=== PATIENT | female | born 1995 | race Caucasian/White ===

== ENCOUNTER 2020-06-19 12:39 | Outpatient (REF) | payer OTHER, SELFPAY ==
[2020-06-19 13:25] LABS: COVID-19 Test Negative (Negative)
== END 2020-06-19 12:40 | disposition home or self-care (01) ==
LOC: HO.LAB 12:39
PROVIDERS: PCP Internal Medicine; Visit Provider Internal Medicine
DX: F25.0 Schizoaffective disorder, bipolar type (principal); Z20.822 Contact with and (suspected) exposure to COVID-19
CPT/HCPCS: 36415; 87635

== ENCOUNTER 2020-09-27 12:21 | Emergency (ER) | payer OTHER, SELFPAY ==
--- NOTE | ~2020-09-27 | US_ITS ---
EXAMINATION: ULTRASOUND PELVIS, TRANSVAGINAL AND DOPPLER. CLINICAL INFORMATION: Left-sided pain. Rule out torsion or ruptured cyst. COMPARISON: None TECHNIQUE: Transabdominal and transvaginal imaging pelvis is performed. Patient has a empty bladder hence transvaginal ultrasound. FINDINGS: On transabdominal and transvaginal ultrasound the uterus is anteverted and anteflexed measuring 9.6 x 4.7 x 5.8 cm. There is fluid visualized within the cervical canal. Endometrial thickness is prominent measuring 0.9 cm. No gestational sac seen. However there is a hypoechoic mass in the left fundal/body of uterus, approximately measuring 2.3 x 2.3 x 2.0 cm just adjacent and inferior in the body of uterus are tangled blood vessels and increased color flow likely related to increased hypervascularity of this fibroid or post biopsy changes. Patient did have a biopsy of this fibroid 4 years ago. Posttraumatic or postbiopsy findings could appear similar. The right ovary measures 4.3 x 3.1 x 2.7 cm and volume 18.8 mL. There is an anechoic corpus luteal cyst measuring 2.7 x 2.5 x 2.5 cm. Ovary measures 3.2 x 2.4 x 1.5 cm and volume 6.0 mL. There is small amount of free fluid in the pelvis. US/US pelvic ovarian doppler IMPRESSION: Small to moderate-sized hypoechoic fibroid left uterus with increased hypervascularity. This could be related to post biopsy or post traumatic changes. Correlate clinically. Small corpus luteal cyst right ovary measuring 2.7 cm. The left ovary is unremarkable. There is minimal fluid in the cervix. There is also discussed with ER physician Dr. Serene White.
--- NOTE | ~2020-09-27 | US_ITS ---
EXAMINATION: ULTRASOUND PELVIS, TRANSVAGINAL AND DOPPLER. CLINICAL INFORMATION: Left-sided pain. Rule out torsion or ruptured cyst. COMPARISON: None TECHNIQUE: Transabdominal and transvaginal imaging pelvis is performed. Patient has a empty bladder hence transvaginal ultrasound. FINDINGS: On transabdominal and transvaginal ultrasound the uterus is anteverted and anteflexed measuring 9.6 x 4.7 x 5.8 cm. There is fluid visualized within the cervical canal. Endometrial thickness is prominent measuring 0.9 cm. No gestational sac seen. However there is a hypoechoic mass in the left fundal/body of uterus, approximately measuring 2.3 x 2.3 x 2.0 cm just adjacent and inferior in the body of uterus are tangled blood vessels and increased color flow likely related to increased hypervascularity of this fibroid or post biopsy changes. Patient did have a biopsy of this fibroid 4 years ago. Posttraumatic or postbiopsy findings could appear similar. The right ovary measures 4.3 x 3.1 x 2.7 cm and volume 18.8 mL. There is an anechoic corpus luteal cyst measuring 2.7 x 2.5 x 2.5 cm. Ovary measures 3.2 x 2.4 x 1.5 cm and volume 6.0 mL. There is small amount of free fluid in the pelvis. US/US pelvic and transvaginal IMPRESSION: Small to moderate-sized hypoechoic fibroid left uterus with increased hypervascularity. This could be related to post biopsy or post traumatic changes. Correlate clinically. Small corpus luteal cyst right ovary measuring 2.7 cm. The left ovary is unremarkable. There is minimal fluid in the cervix. There is also discussed with ER physician Dr. Serene White.
[2020-09-27 13:14] VITALS: BP 121/69; PULSE 78; RESP 18; TEMP 37.1; O2SAT 98; BMI 23.6
--- NOTE | 2020-09-27 14:00 | ED.ABDPAIN ---
HPI - Abdominal Pain General Chief Complaint: Abdominal Pain Stated Complaint: Abd Pain Time Seen by Provider: 09/27/20 14:00 Source: patient Mode of arrival: ambulatory Limitations: no limitations History of Present Illness MD elicited complaint: abdominal pain Pertinent past history: none Onset (ago): day(s) (3 but much worse today) Pain Consistency: intermittent Location: pelvis Severity: moderate Quality: stabbing Radiation: none Exacerbating factors: movement Relieving factors: nothing Associated symptoms: nausea Related Data Previous Rx's Medication Instructions Recorded cyclobenzaprine 10 mg PO TID PRN #14 tab 09/27/20 ibuprofen 600 mg PO Q6H PRN #30 tab 09/27/20 ondansetron 4 mg PO Q8H PRN #20 tab 09/27/20 Allergies Allergy/AdvReac Type Severity Reaction Status Date / Time No Known Allergies Allergy Verified 09/27/20 13:14 Review of Systems Review of Systems Constitutional : No Weight loss, No Fever, No Chills ENT/Mouth : No sore throat, No Rhinorrhea Eyes: No Eye Pain, No Swelling Cardiovascular :no Chest Pain, no SOB, no Dyspnea on Exertion, No Orthopnea, No Edema, No Palpitations Respiratory : No Cough, No Sputum Gastrointestinal : pos Nausea, No Vomiting, No Diarrhea, pos abdominal Pain, No Hematochezia, No Melena Genitourinary : No Dysuria, pos Urinary Frequency Musculoskeletal : No joint pain, No Myalgias, No Joint Swelling Skin : No Skin Lesions, No rash Neuro : No Weakness, No Numbness, No Dizziness, No Headache Psych : No Anxiety/Panic, No Depression Heme/Lymph: No Bruising, No Lymphadenopathy Endocrine : No Polyuria, No Polydipsia All other systems reviewed and are negative Physical Exam Vital Signs: Vital Signs: Last Vital Signs Temp 98.7 F 09/27/20 13:14 Pulse 78 09/27/20 13:14 Resp 18 09/27/20 13:14 BP 121/69 09/27/20 13:14 Pulse Ox 98 09/27/20 13:14 Body Mass Index 23.6 Appearance: Alert. Oriented X3. No acute distress. Eyes: Pupils equal, round and reactive to light. ENT: Pharynx normal. Neck: Normal inspection. Neck supple. CVS: Normal heart rate and rhythm. Pulses normal. Respiratory: No respiratory distress. Breath sounds normal. Abdomen: Soft and moderate LLQ ttp no rebound or guarding Skin: Skin warm and dry. Normal skin color. Normal skin turgor. Extremities: No lower extremity edema. No calf ttp Neuro: Oriented X 3. No motor deficit. No sensory deficit. Course Course Course Narrative: call from Radiology - fibroid uterus has increased in size and is vascular - she had a biopsy on it 4 years ago ?AV malformation post biopsy message sent to Dr. Fields for any further reccs of fibroid - NSAIDs and outpatient follow up MDM - Abdominal Pain MDM Narrative Medical decision making narrative: 25 yo female hx of ovarian cysts comes in with c/o L pelvic pain worsening over 3 days no vomiting/fevers/diarrhea - possible torsion vs cyst at this time labs, IVF, IV toradol for pain, US to evaluate ovary - dispo per results and findings. Lab Data Result diagrams: 09/27/20 14:32 09/27/20 14:32 Labs: Lab Results 09/27/20 09/27/20 09/27/20 Range/Units 14:32 14:32 14:32 WBC 7.1 (4.8-10.8) X10*3/uL RBC 4.07 L (4.20-5.50) X10*6/uL Hgb 12.5 (12.0-16.0) g/dl Hct 35.2 L (37-47) % MCV 86.5 (80-98) fL MCH 30.7 (27.0-33.0) pg MCHC 35.5 H (31.0-35.0) g/dl RDW 11.7 (11.0-16.0) % Plt Count 268 (160-400) X10*3/uL MPV 9.3 L (9.4-12.3) fL Immature Gran % (Auto) 0.1 (0.0-0.4) % Neut % (Auto) 60.1 (45-73) % Lymph % (Auto) 31.6 (20-40) % [place] % (Auto) 5.5 (2-11) % Eos % (Auto) 2.0 (0-4) % Baso % (Auto) 0.7 (0-2) % Lymph # (Auto) 2.3 (1.2-4.9) X10*3/uL [place] # (Auto) 0.4 (0.1-1.2) X10*3/uL Eos # (Auto) 0.1 (0.0-0.4) X10*3/uL Baso # (Auto) 0.1 (0.0-0.2) X10*3/uL Abs Immat Gran (auto) 0.01 (0.00-0.03) X10*3/uL Absolute Neuts (auto) 4.3 (2.0-8.3) X10*3/uL Absolute Nucleated RBC 0.000 (0.0-0.012) X10*3/uL Nucleated RBC % (auto) 0.0 (0.0-0.2) /100WBC Sodium 137 (135-145) mmol/L Potassium 3.8 (3.3-5.1) mmol/L Chloride 105 (96-108) mmol/L Carbon Dioxide 24 (22-29) mmol/L Anion Gap 12 (12-20) BUN 8 L (9-16) mg/dL Creatinine 0.65 (0.5-1.4) mg/dL Estim Creat Clear Calc 112.2 Estimated GFR > 60 Random Glucose 91 (60-115) mg/dL Calcium 9.3 (8.4-10.2) mg/dL Magnesium 1.7 (1.6-2.6) mg/dL Total Bilirubin 0.9 (0.0-1.0) mg/dL Direct Bilirubin 0.4 (0.0-0.5) mg/dL AST 15 (5-31) U/L ALT 15 (0-31) U/L Alkaline Phosphatase 55 (39-117) U/L Total Protein 7.1 (6.5-8.0) g/dL Albumin 4.5 (3.5-5.0) g/dL Lipase 22 (8-78) U/L Urine Color YELLOW Urine Appearance HAZY Urine pH 6.0 (5.0-8.0) Ur Specific [place] 1.020 (1.005-1.025) Urine Protein NEG (NEG-TRACE) MG/DL Urine Glucose (UA) NEG (NEG) MG/DL Urine Ketones NEG (NEG) MG/DL Urine Blood NEG (NEG) Urine Nitrite NEG (NEG) Ur Leukocyte Esterase TRACE H (NEG) Urine RBC 0-2 (0) /HPF Urine WBC 0-2 (0-4) /HPF Ur Squamous Epith Cells 1+ /LPF Urine Bacteria TRACE /LPF Urine Test (NEGATIVE) 09/27/20 Range/Units 14:32 WBC (4.8-10.8) X10*3/uL RBC (4.20-5.50) X10*6/uL Hgb (12.0-16.0) g/dl Hct (37-47) % MCV (80-98) fL MCH (27.0-33.0) pg MCHC (31.0-35.0) g/dl RDW (11.0-16.0) % Plt Count (160-400) X10*3/uL MPV (9.4-12.3) fL Immature Gran % (Auto) (0.0-0.4) % Neut % (Auto) (45-73) % Lymph % (Auto) (20-40) % [place] % (Auto) (2-11) % Eos % (Auto) (0-4) % Baso % (Auto) (0-2) % Lymph # (Auto) (1.2-4.9) X10*3/uL [place] # (Auto) (0.1-1.2) X10*3/uL Eos # (Auto) (0.0-0.4) X10*3/uL Baso # (Auto) (0.0-0.2) X10*3/uL Abs Immat Gran (auto) (0.00-0.03) X10*3/uL Absolute Neuts (auto) (2.0-8.3) X10*3/uL Absolute Nucleated RBC (0.0-0.012) X10*3/uL Nucleated RBC % (auto) (0.0-0.2) /100WBC Sodium (135-145) mmol/L Potassium (3.3-5.1) mmol/L Chloride (96-108) mmol/L Carbon Dioxide (22-29) mmol/L Anion Gap (12-20) BUN (9-16) mg/dL Creatinine (0.5-1.4) mg/dL Estim Creat Clear Calc Estimated GFR Random Glucose (60-115) mg/dL Calcium (8.4-10.2) mg/dL Magnesium (1.6-2.6) mg/dL Total Bilirubin (0.0-1.0) mg/dL Direct Bilirubin (0.0-0.5) mg/dL AST (5-31) U/L ALT (0-31) U/L Alkaline Phosphatase (39-117) U/L Total Protein (6.5-8.0) g/dL Albumin (3.5-5.0) g/dL Lipase (8-78) U/L Urine Color Urine Appearance Urine pH (5.0-8.0) Ur Specific [place] (1.005-1.025) Urine Protein (NEG-TRACE) MG/DL Urine Glucose (UA) (NEG) MG/DL Urine Ketones (NEG) MG/DL Urine Blood (NEG) Urine Nitrite (NEG) Ur Leukocyte Esterase (NEG) Urine RBC (0) /HPF Urine WBC (0-4) /HPF Ur Squamous Epith Cells /LPF Urine Bacteria /LPF Urine Test NEGATIVE (NEGATIVE) Discharge Plan Discharge Clinical Impression: Fibroid, uterine Qualifiers: Uterine leiomyoma location: unspecified location Qualified Code(s): D25.9 - Leiomyoma of uterus, unspecified Patient Disposition: Home, Self-Care Additional Instructions: return to ED for any worsening symptoms or concerns you have a uterine fibroid this is causing your pain at this time Prescriptions: New cyclobenzaprine 10 mg tablet 10 mg PO TID PRN (Reason: muscle spasm) Qty: 14 RF: 0 ibuprofen 600 mg tablet 600 mg PO Q6H PRN (Reason: pain) Qty: 30 RF: 0 ondansetron 4 mg tablet,disintegrating 4 mg PO Q8H PRN (Reason: nausea and vomiting) Qty: 20 RF: 0 Referrals: Moy Fields MD [Physician] - 5 days Stand Alone Forms: Work/School Release [facility] Past Medical History Attestation statement: The following information was validated with the patient. Medical History Anxiety Ovarian cyst Social History Social History (Updated 09/27/20 @ 14:24 by Serene Dominguez DO) Patient Tobacco Use Status: Never used Tobacco Use of substances other than those prescribed or required for medical reasons: No Advance Directives: No Advance Directives Information Provided: Yes
[2020-09-27 14:44] LABS: MANUAL DIFF FLAG NO
[2020-09-27 14:45] LABS: Basophils Absolute Auto 0.1 X10*3/uL (0.0-0.2); Basophils Percent Auto 0.7 % (0-2); Eosinophils Absolute Auto 0.1 X10*3/uL (0.0-0.4); Hematocrit 35.2 % (37-47); Hemoglobin 12.5 g/dl (12.0-16.0); Imm Gran Abs Auto 0.01 X10*3/uL (0.00-0.03); Imm Gran Pct Auto 0.1 % (0.0-0.4); Lymphocytes Absolute Auto 2.3 X10*3/uL (1.2-4.9); Lymphocytes Percent Auto 31.6 % (20-40); Mean Corpuscular HGB Conc 35.5 g/dl (31.0-35.0); Mean Corpuscular Hemoglobin 30.7 pg (27.0-33.0); Mean Corpuscular Volume 86.5 fL (80-98); Mean Platelet Volume 9.3 fL (9.4-12.3); Monocytes Absolute Auto 0.4 X10*3/uL (0.1-1.2); Monocytes Percent Auto 5.5 % (2-11); Neutrophils Absolute Auto 4.3 X10*3/uL (2.0-8.3); Neutrophils Percent Auto 60.1 % (45-73); Platelet Count 268 X10*3/uL (160-400); Red Blood Count 4.07 X10*6/uL (4.20-5.50); Red Cell Distribution Width 11.7 % (11.0-16.0); White Blood Count 7.1 X10*3/uL (4.8-10.8)
[2020-09-27] MEDS: ondansetron HCL 4 MG/2 ML VIAL IVPUSH (14:45)
[2020-09-27] MEDS: 0.9 % Sodium Chloride 1,000 ML 999 ML IVCONT (14:45)
[2020-09-27] MEDS: Ketorolac Tromethamine 30 MG/ML VIAL IVPUSH (14:45)
[2020-09-27 14:47] LABS: Glucose Urine UA NEG (NEG); Leukocyte Esterase Urine TRACE (NEG); Nitrite Urine NEG (NEG); UACC Culture Trigger YES; Urine Blood NEG (NEG); Urine Ketones NEG (NEG); Urine Protein NEG (NEG-TRACE)
[2020-09-27 14:48] LABS: UPreg QC Valid YES; Urine Pregnancy NEGATIVE (NEGATIVE)
[2020-09-27 14:51] LABS: Appearance Urine HAZY; Color Urine YELLOW
[2020-09-27 15:02] LABS: WBC Urine 0-2 /HPF (0-4)
[2020-09-27 15:03] LABS: Bacteria Urine TRACE /LPF; RBC Urine 0-2 /HPF (0); Squamous Epithelial Cell Urine 1+ /LPF
[2020-09-27 15:16] LABS: Alanine Aminotransferase 15 U/L (0-31); Albumin Level 4.5 g/dL (3.5-5.0); Alkaline Phosphatase 55 U/L (39-117); Anion Gap 12 (12-20); Aspartate Amino Transferase 15 U/L (5-31); Bilirubin Direct 0.4 mg/dL (0.0-0.5); Bilirubin Total 0.9 mg/dL (0.0-1.0); Blood Urea Nitrogen 8 mg/dL (9-16); Calcium 9.3 mg/dL (8.4-10.2); Carbon Dioxide 24 mmol/L (22-29); Chloride 105 mmol/L (96-108); Creatinine Clr Calc Pharmacy 112.2; Estimated Glomerular Filt Rate > 60; Glucose Random 91 mg/dL (60-115); Lipase 22 U/L (8-78); Magnesium 1.7 mg/dL (1.6-2.6); Potassium 3.8 mmol/L (3.3-5.1); Sodium 137 mmol/L (135-145); Total Protein 7.1 g/dL (6.5-8.0)
== END 2020-09-27 17:49 | disposition home or self-care (01) ==
PROVIDERS: Emergency Provider Emergency Medicine; PCP Internal Medicine
DX: D25.9 Leiomyoma of uterus, unspecified (principal); R10.2 Pelvic and perineal pain; Z79.899 Other long term (current) drug therapy
CPT/HCPCS: 36415; 76830; 76856; 80048; 80076; 81001; 81003; 81025; 83690; 83735; 85025; 87086; 93975; 96365; 96375; 99285; J1885; J2405